=== PATIENT | male | born 1995 | race Caucasian/White ===

== ENCOUNTER 2020-08-04 10:19 | Emergency (ER) | payer OTHER, SELFPAY ==
[2020-08-04] VITALS (54 sets, daily range): BP systolic 122–196; BP diastolic 71–115; PULSE 51–114; RESP 1–31; TEMP 36.3–36.9; O2SAT 97–100
--- NOTE | 2020-08-04 10:15 | RT.EKG_ITS ---
APPROVED REPORT Exam: Resting ECG Patient Location: E HR:61 bpm ECG Measurements Heart Rate 61 AXIS OR 130 P 30 QRSd 96 QRS 26 QT 375 T 28 QTc 377 Conclusion Sinus rhythm.
--- NOTE | 2020-08-04 10:43 | W.ED.GENAD ---
Discharge Plan Discharge Details Chief Complaint: [facility] Primary Care Provider: [facility],Local ED Provider: Alyssia Mayorga Home Meds and New Rx's Prescriptions: No Action Fish Oil Capsule 1,000 mg PO DAILY RF: 0 Elderberry 200 mg Capsule 400 mg PO DAILY RF: 0 cholecalciferol (vitamin D3) [Vitamin D3] 125 mcg (5,000 unit) Tablet 125 mcg PO DAILY RF: 0 Discharge Data Discharge Date/Time-TO BE ENTERED AT DEPARTURE: 08/04/20 18:25 Medical Decision Making <CRISTAL Sandoval - Last Filed: 08/05/20 08:36> Patient is persistently symptomatic with his uvular edema, I attempted Pepcid, Benadryl, IV steroids, nebulized epinephrine Patient is in the supine position at all he elicit the gag reflex involvement I suspect his symptoms are related to the [id number] supplements he is consuming There is no evidence of an flat at this time He appears more comfortable in room but does have significant persistent uvular swelling There is no stridor or worsening of symptoms noted No clinical evidence of epiglottitis and with onset of symptoms after vomiting I suspect this is related to irritation Case discussed with Dr. Peters, hospitalist who feels uncomfortable admitting the patient as we do not currently have an ICU bed available [facility] phone call placed at approximately 1505 Patient pending transfer at this time [facility] accepted patient in transfer at 1700, pending transport and bed notification Differential Diagnosis Differential Diagnosis: Anaphylaxis, uvulitis, angioedema, epiglottitis Medical Records Medical records reviewed: Yes I reviewed the patient's medical records. Lab Data Lab results reviewed: Yes I reviewed the patient's lab results. <Alyssia Mayorga - Last Filed: 08/05/20 00:29> Care assumed from provider (Thelma BEE) please see her official and initial HPI and physical exam. Discussed patient details and case and pending workup and disposition. Patient is hemodynamically stable, and alert and oriented. Awaiting transfer and bed assignment from [facility]. 1522: At this time patient vomiting order for Zofran 4 mg IV placed. Patient remained hemodynamically stable throughout rest of stay, family at bedside. Informed and updated on plan of care and awaiting EMS and transfer they verbalized understanding. HPI <CRISTAL Sandoval - Last Filed: 08/05/20 08:36> This 24-year-old male presents with report, vomiting, throat swelling. 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 He states that he has been taking Arimivar for a period of time. He states he wakes up in the morning and typically feels quite ill and starts vomiting. He denies any current shortness of breath. He denies any abdominal pain. He denies any exogenous hormone use. Denies insulin use. Denies any falls or injuries. General Date/Time Provider Initiated Documentation: 08/04/20 10:28. Related Data Home Medications Medication Instructions Recorded Confirmed cholecalciferol (vitamin D3) 125 mcg PO DAILY 08/04/20 08/04/20 [Vitamin D3] elderberry fruit [Elderberry] 400 mg PO DAILY 08/04/20 08/04/20 omega-3 fatty acids [Fish Oil] 1,000 mg PO DAILY 08/04/20 08/04/20 Allergies Allergy/AdvReac Type Severity Reaction Status Date / Time No Known Allergies Allergy Unverified 08/04/20 10:29 General Stated Complaint: [facility] CARLOS: 3 <Alyssia Mayorga - Last Filed: 08/05/20 00:29> This 24-year-old male presents with report, vomiting, throat swelling. 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 He states that he has been taking Arimivar for a period of time. He states he wakes up in the morning and typically feels quite ill and starts vomiting. He denies any current shortness of breath. He denies any abdominal pain. He denies any exogenous hormone use. Denies insulin use. Denies any falls or injuries. Review of Systems <CRISTAL Sandoval - Last Filed: 08/05/20 08:36> Narrative: Review of systems obtained x7 aside from where indicated in [facility] <CRISTAL Sandoval - Last Filed: 08/05/20 08:36> Social History Smoking/Tobacco Use Status: Never Smoking risk assessment performed?: Yes Alcohol Intake: current Alcohol Intake frequency: holidays/special occasions only Drug use: Daily Substance use type: marijuana Do you feel safe at home: Yes Do you feel safe in your relationship?: Yes Exam <CRISTAL Sandoval - Last Filed: 08/05/20 08:36> Const General: diaphoretic HENMT Other: Uvular edema noted No tongue swelling No perioral swelling or edema No obvious airway compromise Neck Other: No stridor Resp Effort & Inspection: normal respiratory effort Auscultation: clear to auscultation bilaterally Cardio Rate: regular rate Rhythm: regular rhythm GI Inspection: normal to inspection Auscultation: normal bowel sounds Skin Other: pallor, no urticarial rash Neuro General: patient alert and patient oriented x3 Course <CRISTAL Sandoval - Last Filed: 08/05/20 08:36> Vital Signs Vital signs: Vital Signs Temperature 36.3 C L 08/04/20 10:23 Pulse 62 08/04/20 10:23 Pulse Oximetry 99 08/04/20 10:23 Temperature 36.3 C L 08/04/20 10:23 Temperature Source Temporal Artery Scan 08/04/20 10:23 Pulse 62 08/04/20 10:23 Blood Pressure Position Supine 08/04/20 10:23 Pulse Oximetry 99 08/04/20 10:23 Oxygen Delivery Method Room Air 08/04/20 10:23 Oxygen Flow Rate 0 08/04/20 10:23 Pain Level 5 08/04/20 10:23 Sign Out <CRISTAL Sandoval - Last Filed: 08/05/20 08:36> Sign Out Data: Sign Out Comment: [place] [facility] [place] Last updated by Thelma Khan PA at 08/04/20 17:00
[2020-08-04 10:49] LABS: Abs Immature Grans 0.04 10^3/uL (0.0-0.06); Absolute Eosinophil Count 0.04 10^3/uL (0.0-0.7); Absolute Lymphocyte Count 1.76 10^3/uL (1.2-3.4); Absolute Monocyte Count 0.58 10^3/uL (0.1-0.8); Basophils % 0.5; Eosinophils % 0.4; HCT 45.3 % (40.0-50.0); HGB 15.9 g/dL (13.5-17.5); Immature Grans % 0.4; MCH 30.1 pg (27.0-33.0); MCHC 35.1 % (32.0-36.0); MCV 85.6 fL (80-95); MPV 10.9 fL (8.0-11.0); Monocytes % 5.3; Neutrophils % 77.4; Nucleated RBC 0 %; Platelet Count 188 10^3/uL (130-400); RBC 5.29 10^6/uL (4.36-5.78); RDW-SD 37.5 fL; WBC 11.02 10^3/uL (4.4-10.8)
[2020-08-04 10:50] LABS: Absolute Basophil Count 0.06 10^3/uL (0.0-0.2); Absolute Neutrophil Count 8.53 10^3/uL (1.2-6.7)
[2020-08-04 11:01] LABS: ALT 50 U/L (16-63); AST 25 U/L (15-37); Albumin 4.5 g/dL (3.4-5.0); Alkaline Phosphatase 89 U/L (46-116); Anion Gap 15.3 mmol/L (3-11); BUN 15 mg/dL (7-18); Bilirubin, Total 0.6 mg/dL (0.2-1.0); CO2 20.7 mmol/L (21.0-32.0); CREATININE 1.2 mg/dL (0.70-1.30); Calcium 9.8 mg/dL (8.5-10.1); Chloride 106 mmol/L (98-107); Glucose 136 mg/dL (74-106); Lipase 83 U/L (73-393); Potassium 3.8 mmol/L (3.5-5.1); Sodium 142 mmol/L (136-145); Total Protein 7.6 g/dL (6.4-8.2)
[2020-08-04] MEDS: Normal Saline 1,000 ML 1000 ML IV (11:12)
[2020-08-04] MEDS: diphenhydrAMINE 50 MG/ML VIAL IVP (11:12)
[2020-08-04] MEDS: methylPREDNISolone SUCC 125 MG VIAL IVP (11:12)
[2020-08-04] MEDS: Ondansetron 4 MG/2 ML VIAL IVP ×2 (11:13→17:23)
[2020-08-04 11:44] LABS: Bilirubin Negative (Negative); Blood Negative (Negative); Clarity Clear (Clear); Glucose Negative (Negative); Ketones Negative (Negative); Leukocyte Esterase Negative (Negative); Nitrite Negative (Negative); Urobilinogen 0.2 EU/dL (Up TO 0.2); pH 8.5 (5-8)
[2020-08-04] MEDS: EPINEPHrine for Inhalation 0.5 ML VIAL UPD (11:59)
[2020-08-04] MEDS: Sodium Chloride 0.9% for Inhalation 3 ML VIAL UPD (12:00)
[2020-08-04] MEDS: Normal Saline 500 ML 1000 ML IV (12:23)
[2020-08-04] MEDS: FAMOTIDINE 20 MG/50 ML BAG 200 MG IVPB (12:52)
[2020-08-04] MEDS: diphenhydrAMINE 50 MG/ML VIAL 25 MG IVP (16:31)
[2020-08-04 17:54] LABS: Creatine Kinase 459 U/L (39-308)
== END 2020-08-04 18:25 ==
PROVIDERS: Physician Assistant; Emergency Provider Registered Nurse Emergency
DX: J39.8 Other specified diseases of upper respiratory tract (principal); R11.10 Vomiting, unspecified; R22.1 Localized swelling, mass and lump, neck
CPT/HCPCS: 80053; 82550; 83690; 93005; 94640; 96361; 96365; 96375; 96376; 99285; 81003; 85025; 93010; 99284; J1200; J2405; J2930